=== PATIENT | male | born 1975 | race Caucasian/White ===

== ENCOUNTER 2019-11-28 02:36 | Emergency (ER) | payer BC ==
[2019-11-28 03:34] LABS: ABSOLUTE EOSINOPHILS # (AUTO) 0.3 10^3/uL (0.0-0.6); ABSOLUTE LYMPHOCYTES (AUTO) 1.7 10^3/uL (0.5-4.7); ABSOLUTE MONOCYTES (AUTO) 0.8 10^3/uL (0.1-1.4); ABSOLUTE NEUT (AUTO) 8.7 10^3/uL (1.7-8.2); BASOPHILS % (AUTO) 0.4 % (0-2); EOSINOPHILS % (AUTO) 2.9 % (0-6); HEMATOCRIT 42.9 % (37.9-51.0); LYMPHOCYTES % (AUTO) 14.9 % (13-45); MEAN CORPUSCULAR HEMOGLOBIN 28.9 pg (27.0-33.4); MEAN CORPUSCULAR VOLUME 83 fl (80-97); MONOCYTES % (AUTO) 6.8 % (3-13); PLATELET COUNT 179 10^3/uL (150-450); RED CELL DISTRIBUTION WIDTH 13.7 % (11.5-14.0); TOTAL CELLS COUNTED % (AUTO) 100 %; WHITE BLOOD COUNT 11.6 10^3/uL (4.0-10.5)
[2019-11-28 03:49] LABS: ALBUMIN 4.2 g/dL (3.5-5.0); ALKALINE PHOSPHATASE 57 U/L (38-126); ANION GAP 11 (5-19); ASPARTATE AMINO TRANSFERASE 30 U/L (17-59); BILIRUBIN,DIRECT 0.3 mg/dL (0.0-0.4); BILIRUBIN,TOTAL 0.5 mg/dL (0.2-1.3); BLOOD UREA NITROGEN 22 mg/dL (7-20); CALCIUM 9.4 mg/dL (8.4-10.2); CARBON DIOXIDE 26 mmol/L (22-30); CHLORIDE 104 mmol/L (98-107); GLUCOSE 129 mg/dL (75-110); POTASSIUM 3.9 mmol/L (3.6-5.0); TOTAL PROTEIN 7.1 g/dL (6.3-8.2)
[2019-11-28] MEDS ORDERED: MORPHINE SULFATE 10 MG/ML INJ IV ONE (05:32)
[2019-11-28] MEDS ORDERED: ONDANSETRON HCL INJ/PF 4 MG/2 ML SDV IV ONE (05:33)
[2019-11-28] MEDS ORDERED: KETOROLAC TROMETHAMINE INJ/PF 30 MG/1 ML SDV IV ONE (05:33)
[2019-11-28] MEDS ORDERED: NORMAL SALINE 1000 ML 1,000 ML IV ONE (05:33)
--- NOTE | 2019-11-28 05:34 | ER Document Report ---
ED GI/ - General Chief Complaint: Epigastric Pain Stated Complaint: VOMITING/CRAMPING Time Seen by Provider: 11/28/19 05:29 Notes: Patient is a 44-year-old male that comes to the emergency department for chief complaint of sharp pain in his right upper quadrant and epigastric area with vomiting. Symptoms started tonight and woke him out of his sleep. He states he has been having intermittent pain in the same area but not as bad over the past 2 weeks. He denies fever, flank pain, chest pain, difficulty breathing. He denies any surgeries or daily medications. He denies regular alcohol, smoking, recreational drugs. TRAVEL OUTSIDE OF THE [place] IN LAST 30 DAYS: No - Related Data Allergies/Adverse Reactions: propoxyphene [From Darvocet-N] Allergy (Verified 11/28/19 02:54) Past Medical History - Social History Smoking Status: Never Smoker Patient has suicidal ideation: No Patient has homicidal ideation: No Physical Exam - Vital signs Vitals: Temp Pulse Resp BP Pulse Ox 97.8 F 67 20 143/81 H 98 11/28/19 02:41 11/28/19 02:41 11/28/19 02:41 11/28/19 02:41 11/28/19 02:41 Course - Vital Signs Vital signs: Temp Pulse Resp BP Pulse Ox 97.8 F 67 15 129/85 H 98 11/28/19 02:41 11/28/19 02:41 11/28/19 04:30 11/28/19 04:30 11/28/19 04:30 - Laboratory Result Diagrams: 11/28/19 03:24 11/28/19 03:24 Laboratory results interpreted by me: 11/28/19 11/28/19 03:24 03:24 WBC 11.6 H Absolute Neuts (auto) 8.7 H BUN 22 H Glucose 129 H
--- NOTE | 2019-11-28 05:41 | ER Document Report ---
ED Medical Screen (RME) - General Chief Complaint: Epigastric Pain Stated Complaint: VOMITING/CRAMPING Time Seen by Provider: 11/28/19 05:29 Notes: Patient is a 44-year-old male that comes to the emergency department for chief complaint of sharp pain in his right upper quadrant and epigastric area with vomiting. Symptoms started tonight and woke him out of his sleep. He states he has been having intermittent pain in the same area but not as bad over the past 2 weeks. He denies fever, flank pain, chest pain, difficulty breathing. He de nies any surgeries or daily medications. He denies regular alcohol, smoking, recreational drugs. TRAVEL OUTSIDE OF THE [place] IN LAST 30 DAYS: No - Related Data Allergies/Adverse Reactions: propoxyphene [From Darvocet-N] Allergy (Verified 11/28/19 02:54) Physical Exam - Vital signs Vitals: Temp Pulse Resp BP Pulse Ox 97.8 F 67 20 143/81 H 98 11/28/19 02:41 11/28/19 02:41 11/28/19 02:41 11/28/19 02:41 11/28/19 02:41 - Abdominal Tenderness: Tender - Notable tenderness in the right upper quadrant epigastric area with positive Araya sign, lower abdomen completely benign Course - Re-evaluation Re-evalutation: I have greeted and performed a rapid initial assessment of this patient. A comprehensive ED assessment and evaluation of the patient, analysis of test results and completion of the medical decision making process will be conducted by additional ED providers. - Vital Signs Vital signs: Temp Pulse Resp BP Pulse Ox 97.8 F 67 15 129/85 H 98 11/28/19 02:41 11/28/19 02:41 11/28/19 04:30 11/28/19 04:30 11/28/19 04:30 - Laboratory Result Diagrams: 11/28/19 03:24 11/28/19 03:24 Laboratory results interpreted by me: 11/28/19 11/28/19 03:24 03:24 WBC 11.6 H Absolute Neuts (auto) 8.7 H BUN 22 H Glucose 129 H
[2019-11-28 07:11] LABS: APPEARANCE,URINE CLEAR; BILIRUBIN,URINE NEGATIVE (NEGATIVE); COLOR,URINE YELLOW; GLUCOSE, URINE NEGATIVE (NEGATIVE); KETONES,URINE NEGATIVE (NEGATIVE); LEUKOCYTE ESTERASE,URINE NEGATIVE (NEGATIVE); NITRITE,URINE NEGATIVE (NEGATIVE); PROTEIN,URINE 30 mg/dL (NEGATIVE)
--- NOTE | 2019-11-28 07:57 | RADIOLOGY REPORT (SQ) ---
Ultrasound right upper quadrant on 11/28/2019 at 6:34 AM CLINICAL INDICATION: Right upper quadrant and epigastric pain COMPARISON: None FINDINGS: Multiple sonographic images are obtained throughout the right upper quadrant, both transverse and sagittal images are obtained. Limited visualized pancreas is unremarkable. There is increased echogenicity in the liver consistent with fatty infiltration. No focal liver lesion is noted. There are echogenic foci with posterior shadowing in the gallbladder consistent with gallstones. No gallbladder wall thickening or pericholecystic fluid is noted. Right kidney shows no hydronephrosis. Common duct measures 4 mm which is within normal limits beginning against obstruction of the biliary tree. IMPRESSION: 1. Cholelithiasis. 2. Fatty infiltration of the liver.
--- NOTE | 2019-11-28 08:23 | ER Document Report ---
ED General - General Chief Complaint: Epigastric Pain Stated Complaint: VOMITING/CRAMPING Time Seen by Provider: 11/28/19 05:29 Notes: 44-year-old male presents with intermittent epigastric pain that radiates to the back for 2 weeks. Patient states he ate [employer] last night and then was woken up from sleep around 4 AM with severe pain to the epigastric that radiated to the right upper quadrant with nausea/vomiting. Patient was triaged by previous PA and states that when the PA pushed on his right upper quadrant he immediately started to the vomit. Patient was also given pain medicine prior to me seeing him. Patient states that his nausea/vomiting has improved with the Zofran he was given and his pain is under control. Patient denies any fever, chills, urinary symptoms, diarrhea, constipation. TRAVEL OUTSIDE OF THE [place] IN LAST 30 DAYS: No - Related Data Allergies/Adverse Reactions: propoxyphene [From Darvocet-N] Allergy (Verified 11/28/19 02:54) Past Medical History - Social History Smoking Status: Never Smoker Family History: Reviewed & Not Pertinent Patient has suicidal ideation: No Patient has homicidal ideation: No Review of Systems - Review of Systems Notes: Constitutional: Negative for fever. HENT: Negative for sore throat. Eyes: Negative for visual changes. Cardiovascular: Negative for chest pain. Respiratory: Negative for shortness of breath. Gastrointestinal: Positive for abdominal pain, nausea, vomiting. Negative for diarrhea. Genitourinary: Negative for dysuria. Musculoskeletal: Negative for back pain. Skin: Negative for rash. Neurological: Negative for headaches, weakness or numbness. 10 point ROS negative except as marked above and in HPI. Physical Exam - Vital signs Vitals: Temp Pulse Resp BP Pulse Ox 97.8 F 67 20 143/81 H 98 11/28/19 02:41 11/28/19 02:41 11/28/19 02:41 11/28/19 02:41 11/28/19 02:41 - Notes Notes: GENERAL: Well-appearing, well-nourished and in no acute distress. HEAD: Atraumatic, normocephalic. EYES: Extraocular movements intact, sclera anicteric, conjunctiva are normal. NECK: Normal range of motion, supple without lymphadenopathy or JVD. LUNGS: Breath sounds clear to auscultation bilaterally and equal. No wheezes rales or rhonchi. HEART: Regular rate and rhythm without murmurs, rubs or gallops. ABDOMEN: Soft, mildly tender to RUQ. No guarding, no rebound. No masses appreciated. EXTREMITIES: Normal range of motion, no pitting or edema. No clubbing or cyanosis. NEUROLOGICAL: Cranial nerves II through XII grossly intact. Normal speech, normal gait. PSYCH: Normal mood, normal affect. SKIN: Warm, Dry, normal turgor, no rashes or lesions noted. Course - Re-evaluation Re-evalutation: 11/28/19 nontoxic, well-appearing. Afebrile, initially positive Araya sign per previous PA's note. Abdomen soft mildly tender to right upper quadrant. Nausea vomiting has improved with some Zofran. Ultrasound shows gallstones without any signs of cholecystitis. Lab work shows mildly elevated WBC at 11.6 but is otherwise within normal limits. UA shows no urinary tract infection. Discussed all results with patient. Patient states he lives in [facility] so I printed out a list of general surgeons in [place] with their addresses and phone numbers and gave this to the patient. Also printed out ultrasound report and gave it to him to take with him. Patient given medication for pain control and nausea. Patient given strict return precautions. Patient voices underst anding and agrees with plan of care. - Vital Signs Vital signs: Temp Pulse Resp BP Pulse Ox 98.0 F 67 13 140/75 H 97 11/28/19 08:36 11/28/19 02:41 11/28/19 08:36 11/28/19 08:36 11/28/19 08:36 - Laboratory Result Diagrams: 11/28/19 03:24 11/28/19 03:24 Laboratory results interpreted by me: 11/28/19 11/28/19 11/28/19 03:24 03:24 06:49 WBC 11.6 H Absolute Neuts (auto) 8.7 H BUN 22 H Glucose 129 H Urine Protein 30 H Urine Urobilinogen 2.0 H Discharge - Discharge Clinical Impression: Gallstones, RUQ abdominal pain Nausea & vomiting Qualifiers: Vomiting type: unspecified Vomiting Intractability: unspecified Qualified Code(s): R11.2 - Nausea with vomiting, unspecified Condition: Stable Disposition: HOME, SELF-CARE Instructions: Gallbladder Disease ([facility]) Additional Instructions: Your ultrasound shows gallstones however does not indicate an infection of your gallbladder. Please follow-up with 1 of the surgeons back in [place] (list provided) in 3 to 5 days for follow-up. Please take your ultrasound report with you. Take medications as prescribed. Do not drink or drive while taking narcotics as they may make you drowsy. Please return immediately to ER if you start having any worsening symptoms, including worsening pain, vomiting not controlled by medication, fever, diarrhea, chest pain, shortness of breath, or any other symptoms that are concerning to you. Prescriptions: Ondansetron [Zofran Odt 4 mg Tablet] 4 mg PO Q4HP PRN #30 tab.rapdis PRN Reason: Ibuprofen [Motrin 800 mg Tablet] 800 mg PO Q8H PRN #30 tab PRN Reason: Oxycodone HCl/Acetaminophen [Percocet 5-325 mg Tablet] 1 tab PO ASDIR PRN #15 tab PRN Reason:
[2019-11-28 08:46] VITALS: BP 140/75
--- NOTE | 2019-11-28 18:35 | EKG REPORT ---
SEVERITY:- NORMAL ECG - SINUS RHYTHM : Confirmed by: Natalie Cooper MD 28-Nov-2019 18:34:53
== END 2019-11-28 08:46 | disposition home or self-care (01) ==
LOC: ER 02:36
DX: K80.20 Calculus of gallbladder without cholecystitis without obstruction (principal); R10.13 Epigastric pain; R10.11 Right upper quadrant pain; R11.2 Nausea with vomiting, unspecified; R10.811 Right upper quadrant abdominal tenderness; D72.829 Elevated white blood cell count, unspecified; Z88.6 Allergy status to analgesic agent; Z88.5 Allergy status to narcotic agent
CPT/HCPCS: 93005; 99284; 96361; 96374; 96375; 36415; 83690; 85025; 80053; 81001; 76705; 93010; J1885; J2270; J2405; J7030